=== PATIENT | male | born 1970 | race Caucasian/White ===

== ENCOUNTER 2022-12-13 19:50 | Emergency (ER) | payer SELFPAY ==
[2022-12-13] VITALS (34 sets, daily range): BP systolic 154–216; BP diastolic 107–141; PULSE 65–96; RESP 7–18; TEMP 36.5; O2SAT 94; BMI 32.5
--- NOTE | 2022-12-13 19:57 | ED.NECK1 ---
HPI - Neck Pain/Injury General Chief Complaint: Neck Pain/Injury Stated Complaint: neck pain into chest Time Seen by Provider: 12/13/22 19:57 History of Present Illness HPI Narrative: Patient presents to emergency department complaining of neck pain. Patient states the last 2 weeks he developed neck pain. He then fell on his back which made his neck pain worse. He saw a chiropractor who did HVLA on him and he states since then the neck pain got worse and now he also has some numbness to the right arm. Patient states the pain is in the shoulder blade since now radiating anteriorly. They saw the primary care doctor yesterday and was started on gabapentin. The patient also states his blood pressure at that visit was 130/80 and he has never had a history of hypertension. Patient has taken [id number] medications without any relief. He states nothing has been helping. He denies any weakness. Denies any fever, chills, or cough. He denies any shortness of breath. He denies any visual disturbance, speech difficulties. He denies any paresthesias. He denies any urinary, bowel incontinence, or retention. Denies any nausea, vomiting, diarrhea, constipation, or abdominal pain. MD complaint: Reports neck pain, neck injury and upper back pain Related Data Home Medications Medication Instructions Recorded Confirmed aspirin 81 mg tablet,delayed 81 mg PO DAILY 12/13/22 12/13/22 release (Adult Aspirin Regimen) gabapentin 300 mg capsule 300 mg PO Q12H 12/13/22 12/13/22 lansoprazole 15 mg capsule,delayed 15 mg PO DAILY 12/13/22 12/13/22 release (Prevacid 24Hr) Allergies Allergy/AdvReac Type Severity Reaction Status Date / Time No Known Drug Allergies Allergy Verified 12/13/22 20:15 Review of Systems ROS Status of ROS 10 or more systems reviewed and unremarkable except as noted in history and below [facility] Social History Smoking status: Current every day smoker Exam Narrative Exam Narrative: Nurses notes and vital signs reviewed and patient is not hypoxic. General: Nontoxic, Well-appearing and in no apparent distress. Skin: Warm, dry, no pallor noted. No Rash Head: Normocephalic, atraumatic. Neck: Supple, Nontender, full range of motion Eye: Pupils are equal, round and EOMI. No scleral icterus. Ears, Nose, Mouth, and Throat: TM clear, no posterior oropharynx erythema or nasal mucosal hypertrophy, uvula is mid-line Oral mucosa is moist Cardiovascular: Regular Rate and Rhythm without murmur, gallop or rub. Respiratory: No accessory muscle use or respiratory distress. Lungs are clear to auscultation, no wheezing, rales or rhonchi Chest Wall: no tenderness Back: No midline thoracic or lumbar vertebral tenderness. Tenderness to palpation to the right border of the scapular, Pain is reproducible by palpation. No CVA tenderness Musculoskeletal: normal ROM, no calf or popliteal tenderness, no lower extremity edema/swelling GI: Abdomen is soft, non-distended. Normal bowel sounds. No masses appreciated. No tenderness to palpation. No rebound, guarding, or rigidity noted. Neurological: A&O x4. No cranial nerve dysfunction observed. No truncal ataxia. Moves all extremities. Sensation intact. Psychiatric: Cooperative and interactive. Normal mood and affect. Constitutional Vital Signs, click to edit/add: Last Vital Signs Temp 97.7 F 12/13/22 19:54 Pulse 76 12/14/22 06:01 Resp 12 12/14/22 02:51 BP 151/102 H 12/14/22 06:01 Pulse Ox 93 L 12/14/22 06:01 O2 Del Method Nasal Cannula 12/14/22 03:06 O2 Flow Rate 2 12/14/22 03:06 Course Vital Signs Vital signs: Vital Signs Temperature 97.7 F 12/13/22 19:54 Pulse Rate 87 12/13/22 19:54 Respiratory Rate 18 12/13/22 19:54 Blood Pressure 208/130 H 12/13/22 19:54 Pulse Oximetry 94 L 12/13/22 19:54 Oxygen Delivery Method Room Air 12/13/22 19:54 Temperature 97.7 F 12/13/22 19:54 Pulse Rate 76 12/14/22 06:01 Respiratory Rate 12 12/14/22 02:51 Blood Pressure 151/102 H 12/14/22 06:01 Pulse Oximetry 93 L 12/14/22 06:01 Oxygen Delivery Method Nasal Cannula 12/14/22 03:06 Oxygen Delivery Flow Rate 2 12/14/22 03:06 MDM - Neck Pain/Injury MDM Narrative Medical decision making narrative: The patient has extremely high blood pressure. IV was established, he was given analgesics, muscle relaxants to see if the blood pressure will improve with pain control. Patient's pain improved however the blood pressure remained high. He was given Vasotec, hydralazine, Lopressor, nitroglycerin sublingual, and ultimately placed on a Cardene drip for blood pressure control. The patient has no previous history of hypertension. Cardene drip this will ultimately help control his blood pressure. The patient required large amounts of narcotics and muscle relaxants to control the pain subsequently his oxygen saturation dropped to 89 percent and was placed on 2 L nasal cannula. CTA of the neck was done does not show any vascular pathology. CT scan of the brain was done showing anything acute. Chest x-ray shows borderline cardiomegaly. Patient denies any shortness of breath. No previous history of heart disease. The patient was discussed with our hospitalist to admit for accelerated hypertension since he is on the Cardene drip and hospitalist advised that in order to address the patient's neck and back pain with the numbness to his arm as an MRI needs to be obtained. 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 This is a long weekend. They advised to best course would be to transfer the patient to a facility where he can have an MRI or a neurologist to see him. The patient was discussed with Dr. lieberman at [facility] who has accepted the patient in transfer. The patient has arranged transportation at 8:30 AM he is here. He will be signed out at the end of my shift to Dr. Friend awaiting transportation. Differential Diagnosis Differential diagnosis: Likely disc disorder of cervical region, cervical radiculopathy, vertebral artery dissection and strain of neck muscle Lab Data Attestation: I reviewed the patient's lab results. Labs: Lab Results 12/13/22 Range/Units 20:15 WBC 7.0 (4.0-11.0) 10^3/uL RBC 5.40 (4.70-6.10) 10^6/uL Hgb 15.5 (14.0-18.0) g/dL Hct 45.8 (42.0-54.0) % MCV 84.8 (80.0-94.0) fL MCH 28.7 (25.9-34.0) pg MCHC 33.8 (29.9-35.2) g/dL RDW 12.5 (11.0-15.0) % Plt Count 229 (150-450) 10^3/uL MPV 8.5 L (9.5-13.5) fL Neut % (Auto) 62.8 (43.0-75.0) % Lymph % (Auto) 26.5 (20.5-60.0) % [place]hin % (Auto) 7.5 (1.7-12.0) % Eos % (Auto) 2.6 (0.9-7.0) % Baso % (Auto) 0.3 (0.2-2.0) % Neut # (Auto) 4.4 (1.4-6.5) 10^3/uL Lymph # (Auto) 1.9 (1.2-3.8) 10^3/uL [place] # (Auto) 0.5 (0.3-0.8) 10^3/uL Eos # (Auto) 0.2 (0.0-0.7) 10^3/uL Baso # (Auto) 0.0 (0.0-0.1) 10^3/uL Abs Immat Gran (auto) 0.02 (0.00-0.03) 10^3/uL Imm/Tot Granulo (auto) 0.3 (0.0-0.5) % Sodium 141 (136-145) mmol/L Potassium 4.0 (3.5-5.1) mmol/L Chloride 107 (98-107) mmol/L Carbon Dioxide 27.1 (21.0-32.0) mmol/L Anion Gap 10.9 BUN 15.0 (7.0-18.0) mg/dL Creatinine 0.98 (0.70-1.30) mg/dL Est GFR ( Amer) >60 (>=60) Est GFR (Non-Af Amer) >60 (>=60) BUN/Creatinine Ratio 15.3 Glucose 102 (74-106) mg/dL Calcium 8.7 (8.5-10.1) mg/dL Troponin I High Sens 21.4 (4.0-76.1) pg/mL ECG Data Attestation: I personally reviewed and interpreted this ECG as follows: Critical Care Time Critical Care Time Critical Care Time: Yes Total Critical Care Time: 60 Attestation: Critical Care Time: 60 minutes, critical care time is separate from any procedures that are performed. The following was considered in the determination of critical care but not limited to the level medical decision-making, intensive cardiac and/or respiratory monitor, frequent vital sign monitoring, evaluation of laboratory studies, evaluation of a radiographic studies, oxygen monitoring and constant monitoring. Discharge Plan Discharge Chief Complaint: Neck Pain/Injury Clinical Impression: Accelerated hypertension, Neck and shoulder pain Patient Disposition: [facility] Time of Disposition Decision: 02:50 Discharge Location: [facility] Condition: Good Mode of Transportation: EMS
--- NOTE | 2022-12-13 20:06 | XR_ITS ---
The [address] [address] Patient Name: KEVEN CAREY MRN: [id number] date: 1970 Sex: M Assigned Patient Location: ED.MAIN Current Patient Location: ER Accession/Order Number: [id number] Exam Date: 12/13/2022 20:48 Report Date: 12/13/2022 21:41 At the request of: TEMO ROBLES Procedure: XR chest 1V ONE-VIEW CHEST RADIOGRAPH, 12/13/2022 8:48 PM EDT COMPARISON: None. CLINICAL HISTORY: pain Findings and impression: 1. No acute pulmonary disease. 2. Mild cardiomegaly. 3. No acute osseous abnormality. Electronically authenticated by: Dao REINOSO Date: 12/13/2022 21:41
--- NOTE | 2022-12-13 20:06 | CT_ITS ---
The [address] [address] Patient Name: KEVEN CAREY MRN: [id number] date: 1970 Sex: M Assigned Patient Location: ER Current Patient Location: [facility] Accession/Order Number: [id number] Exam Date: 12/13/2022 20:50 Report Date: 12/13/2022 22:29 At the request of: TEMO ROBLES Procedure: CT angio neck CT angio neck INDICATION: 52 years old; hypertension. Neck pain started a couple of weeks ago . Fall. Increasing pain. Right arm paresthesia. TECHNIQUE: CT angiogram of the neck was performed. Coronal, sagittal and 3-D reformats were created and reviewed. IV contrast Omnipaque 350 100mL. No complications . Carotid stenosis measurements were made according to the NASCET criteria. Ionizing radiation dose reduced via iterative reconstruction/FBP blend and body size kV/mA adjustment. COMPARISON: None available at time of dictation. FINDINGS: Motion artifacts. AORTIC ARCH: Only a portion of the arch is included. The origins the great vessels are visible and are patent. ANTERIOR CIRCULATION: , Carotid arteries are patent. Calcific plaque in the carotid bifurcation the left. No flow-limiting stenosis is seen in the carotid bifurcations. Cervical ICA are tortuous but patent up to the skull base. No stenosis or thrombus is seen. No dissection is noted. Vessel kinking is seen in the cervical ICA bilaterally. Although the study is not optimized for intracranial evaluation, the intrapetrous, intracavernous, and supraclinoid ICA are grossly patent. POSTERIOR CIRCULATION: The V1, V2, and V3 segments of vertebral arteries are patent. No stenosis or thrombus is seen. No dissection is noted. Although the study is not optimized for intracranial evaluation, there is calcific plaque without stenosis in the V4 segment on the left. There is shallow ulceration in the V4 segment on the right. The visualized portion of the basilar artery is patent. AICA patent bilaterally. DEVELOPMENTAL ANOMALIES: None. OTHER: No thyroid nodule or adenopathy. Cervical spondylosis is noted, worse at the C5-C6 level. However the study is not a substitute for cervical imaging due to motion artifacts. CT/CT angio neck IMPRESSION: 1. Motion artifacts degrade the examination. 2. Allowing for vascular tortuosity in the carotid arteries in the neck, no stenosis or thrombus. No dissection. No dissection the vertebral arteries is appreciated allowing for motion artifacts. 3. Cervical spondylosis worse at C5-C6. However, the study is not a substitute for cervical imaging due to the presence of motion artifacts. There is neural foraminal stenosis secondary to osteophytes at the C5-C6 level. Electronically authenticated by: OVI LOPEZ Date: 12/13/2022 22:29
[2022-12-13] MEDS: MORPHINE SULFATE 4 MG/ML VIAL IV (20:15)
[2022-12-13 20:26] LABS: Basophils Percent Auto 0.3 % (0.2-2.0); Eosinophils Absolute Auto 0.2 10^3/uL (0.0-0.7); Eosinophils Percent Auto 2.6 % (0.9-7.0); Hematocrit 45.8 % (42.0-54.0); Hemoglobin 15.5 g/dL (14.0-18.0); Immature Granulocytes Abs Auto 0.02 10^3/uL (0.00-0.03); Immature Granulocytes Pct Auto 0.3 % (0.0-0.5); Lymphocytes Absolute Auto 1.9 10^3/uL (1.2-3.8); Lymphocytes Percent Auto 26.5 % (20.5-60.0); Mean Corpuscular HGB Conc 33.8 g/dL (29.9-35.2); Mean Corpuscular Hemoglobin 28.7 pg (25.9-34.0); Mean Corpuscular Volume 84.8 fL (80.0-94.0); Mean Platelet Volume 8.5 fL (9.5-13.5); Monocytes Absolute Auto 0.5 10^3/uL (0.3-0.8); Monocytes Percent Auto 7.5 % (1.7-12.0); Neutrophils Absolute Auto 4.4 10^3/uL (1.4-6.5); Neutrophils Percent Auto 62.8 % (43.0-75.0); Platelet Count 229 10^3/uL (150-450); Red Cell Distribution Width 12.5 % (11.0-15.0)
[2022-12-13] MEDS: METOPROLOL TARTRATE 5 MG/5 ML VIAL IVP (20:27)
[2022-12-13 20:41] LABS: Anion Gap 10.9; BUN Creatinine Ratio 15.3; Calcium 8.7 mg/dL (8.5-10.1); Carbon Dioxide 27.1 mmol/L (21.0-32.0); Chloride 107 mmol/L (98-107); Estimated GFR (African America >60 (>=60); Estimated GFR (Non-African Ame >60 (>=60); Glucose 102 mg/dL (74-106); Sodium 141 mmol/L (136-145); Troponin I High Sensitivity 21.4 pg/mL (4.0-76.1)
[2022-12-13] MEDS: ENALAPRILAT DIHYDRATE 1.25 MG/ML VIAL 2.5 MG IV (21:15)
[2022-12-13] MEDS: HYDROMORPHONE HCL 0.5 MG/0.5 ML SYRINGE 1 MG IV (21:16)
--- NOTE | 2022-12-13 21:17 | ECG_ITS ---
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
[2022-12-13] MEDS: NITROGLYCERIN 0.4 MG TAB.SUBL PO (22:05)
[2022-12-13] MEDS: HYDRALAZINE HCL 20 MG/ML VIAL 10 MG IVP (22:58)
[2022-12-13] MEDS: LORAZEPAM 2 MG/ML 1 ML VIAL 1 MG IV (23:47)
[2022-12-14] VITALS (89 sets, daily range): BP systolic 89–203; BP diastolic 51–138; PULSE 63–123; RESP 9–20; O2SAT 87–96
--- NOTE | 2022-12-14 00:32 | CT_ITS ---
The [address] [address] Patient Name: KEVEN CAREY MRN: [id number] date: 1970 Sex: M Assigned Patient Location: ER Current Patient Location: Accession/Order Number: [id number] Exam Date: 12/14/2022 01:05 Report Date: 12/14/2022 01:28 At the request of: TEMO ROBLES Procedure: CT head/brain wo con INDICATION: 52 years old; Male. For 2 weeks. Increasing pain status post fall. TECHNIQUE: CT Head (ax/cor/sag reformats). Ionizing radiation dose reduced via iterative reconstruction/FBP blend and body size kV/mA adjustment. Comparison: None. This examination was performed subsequent to a CT angiogram of the neck. Therefore, although contrast was not administered at the time of the head CT, contrast is seen within the examination. FINDINGS: POSTOPERATIVE CHANGES: None. BRAIN PARENCHYMA: No focal lesions. No mass effect. No midline shift or herniation. No intraparenchymal or extra-axial hemorrhage. No gross evidence of pathologic enhancement. Normal chadwick/white differentiation. VENTRICLES/EXTRA-AXIAL SPACES: Normal for patient's age. SINUSES/MASTOIDS: The visualized sinuses are clear. There is opacification of mastoid air cells on the left. No coalescence of the air cells is appreciated. Mastoid antra are patent bilaterally. Middle ears are clear. Right mastoid air cells are clear. MSK: No displaced or depressed calvarial fracture is noted. OTHER: No hyperdense intraluminal thrombus is seen allowing for the presence of contrast. CT/CT head/brain wo con IMPRESSION: 1. No acute intracranial abnormality. No hemorrhage or mass effect. Electronically authenticated by: OVI LOPEZ Date: 12/14/2022 01:28
[2022-12-14] MEDS: NICARDIPINE IN NACL, ISO-OSM 40 MG/200 ML PIGGYBACK 25 MG IV (01:19)
[2022-12-14] MEDS: HYDROMORPHONE HCL 0.5 MG/0.5 ML SYRINGE 1 MG IV (02:57)
[2022-12-14] MEDS: ORPHENADRINE 60 MG/ 2 ML VIAL IV (02:58)
== END 2022-12-14 08:39 | disposition short-term general hospital (02) ==
PROVIDERS: Emergency Provider Emergency Medicine; Family Provider Family Medicine; PCP Orthopaedic Surgery
DX: I10 Essential (primary) hypertension (principal); M54.2 Cervicalgia; M25.511 Pain in right shoulder; Z79.82 Long term (current) use of aspirin; Z79.899 Other long term (current) drug therapy; F17.210 Nicotine dependence, cigarettes, uncomplicated
CPT/HCPCS: 36415; 70450; 70498; 71045; 80048; 84484; 85025; 93005; 96374; 96375; 96376; 99285; J1170; Q9967